=== PATIENT | female | born 1995 | race Hispanic/Latino ===

== ENCOUNTER 2023-05-18 01:35 | Emergency (ER) | payer SELFPAY ==
[2023-05-18] MEDS ORDERED: Mag-Al 1200 mg/1200 mg/30 ML UDCUP ONE (01:59)
[2023-05-18] MEDS ORDERED: Ondansetron PF 4 MG/2 ML Vial ONE (01:59)
[2023-05-18 02:33] LABS: #Eosinphils 0.2 thou/uL (0.0-0.7); #Monocytes 0.4 thou/uL (0.11-0.59); #Neutrophils 5.2 thou/uL (1.40-6.50); %Basophils 0.4 % (0.0-1.0); %Eosinophils 2.1 % (0.0-10.0); %Lymphocytes 19.4 % (21.0-51.0); %Monocytes 6.1 % (0.0-10.0); %Neutrophils 71.9 % (42.0-75.0); Hemoglobin 13.1 g/dL (12.0-16.0); Mean Corpuscular Hemoglobin 28.9 pg (27.0-31.0); Mean Corpuscular Volume 90.5 fl (78.0-98.0); Mean Platelet Volume 10.3 fL (7.4-10.4); Platelet Count 250 10x3/uL (130-400); RBC Distribution Width 13.2 % (11.5-14.5); Red Blood Cell (RBC) Count 4.53 mill/uL (4.20-5.40); White Blood Cell (WBC) Count 7.2 10x3/uL (4.8-10.8)
[2023-05-18 02:58] LABS: ALT (SGPT) 144 U/L (8-55); AST (SGOT) 136 U/L (5-34); Albumin 4.4 g/dL (3.5-5.0); Alkaline Phosphatase 134 U/L (40-110); Anion Gap 14 mmol/L (10-20); BUN (Urea Nitrogen) 15 mg/dL (7.0-18.7); Bilirubin, Total 0.7 mg/dL (0.2-1.2); Calc. Creatinine Clearance 0 mL/min (70-130); Calcium 9.5 mg/dL (7.8-10.44); Carbon Dioxide 24 mmol/L (22-29); Chloride 104 mmol/L (98-107); Estimated GFR 101; Globulin 3.2 g/dL (2.4-3.5); Glucose 105 mg/dL (70-105); Lipase 42 U/L (8-78); Potassium 3.5 mmol/L (3.5-5.1); Protein, Total 7.6 g/dL (6.0-8.3); Sodium 138 mmol/L (136-145)
== END 2023-05-18 03:20 | disposition home or self-care (01) ==
LOC: ERS 01:35
DX: K80.50 Calculus of bile duct without cholangitis or cholecystitis without obstruction (principal)
CPT/HCPCS: 36415; 71045; 76705; 80053; 83690; 84484; 85025; 93005; 96374; J2405